=== PATIENT | female | born 1930 ===

== ENCOUNTER 2017-05-10 20:21 | Inpatient (IN) | payer MEDICARE, OTHER ==
[2017-05-10 20:49] VITALS: BMI 28.0
[2017-05-10 21:25] LABS: BASO # 0.02 K/mm3 (0.0-2.0); BASO % 0.3 % (0.0-3.0); EOS # 0.2 (0.0-0.7); EOS % 2.1 % (1.5-5.0); GRAN # 5.08 (1.4-6.5); GRAN % 67.4 % (50.0-68.0); HEMOGLOBIN 11.1 g/dL (12.0-16.0); LYMPH # 1.8 (1.2-3.4); LYMPH % 24.2 % (22.0-35.0); MEAN CELL VOLUME 86.8 fl (80.0-105.0); MEAN CORPUSCULAR HEMOGLOBIN 28.8 pg (25.0-35.0); MEAN CORPUSCULAR HGB CONC 33.2 g/dl (31.0-37.0); MEAN PLATELET VOLUME 10.4 fl (7.0-11.0); MONO # 0.5 (0.1-0.6); RBC 3.85 10^6/uL (3.5-6.1); WHITE BLOOD COUNT 7.5 10^3/ul (4.5-11.0)
[2017-05-10 21:34] LABS: INR 0.97 (0.93-1.08); PROTHROMBIN TIME 11.1 SECONDS (9.4-12.5)
[2017-05-10 21:35] LABS: PARTIAL THROMBOPLASTIN TIME 27.4 Seconds (25.1-36.5)
[2017-05-10 21:36] LABS: ALB/GLOB RATIO 1.4 (1.1-1.8); ALBUMIN 3.8 g/dL (3.0-4.8); CALCIUM 8.1 mg/dL (8.4-10.5)
[2017-05-10 21:48] LABS: TROPONIN I 0.1 ng/mL
--- NOTE | 2017-05-10 22:25 | ED PDOC ---
Arrival/HPI - General Chief Complaint: Chest Pain Time Seen by Provider: 05/10/17 20:24 Historian: Patient - History of Present Illness Narrative History of Present Illness (Text): 05/10/17 21:00 Hilda Martinez is an 86 year old female, whose past medical history includes pacemaker and atrial fibrillation, who presents to the emergency department complaining of chest pain. Patient states she developed mid-sternal chest pain after drinking GoLytely for her colonscopy tomorrow. Patient was given Aspirin and Nitroglycerin en route to the ER by EMS with improvement. Patient denies any fever, chills, shortness of breath, abdominal pain, nausea, vomiting, diarrhea, urinary symptoms, back pain, neck pain, headache, dizziness, or any other complaints. Time/Duration: Other (today) Symptom Onset: Gradual Symptom Course: Unchanged Activities at Onset: Light Context: Home Past Medical History - Provider Review Nursing Documentation Reviewed: Yes - Reproductive Menopause: Yes - Cardiac Hx Atrial Fibrillation: Yes Hx Pacemaker: Yes - Endocrine/Metabolic Hx Hyperthyroidism: Yes - Hematological/Oncological Hx Anemia: Yes - Musculoskeletal/Rheumatological Hx Arthritis: Yes - Psychiatric Hx Substance Use: No - Surgical History Hx Section: Yes (x3) Other/Comment: pacemaker placement 4/5 years emeterio - Anesthesia Hx Anesthesia: Yes Hx Anesthesia Reactions: No Family/Social History - Physician Review Nursing Documentation Reviewed: Yes Family/Social History: Unknown Family HX Smoking Status: Never Smoked Hx Alcohol Use: No Hx Substance Use: No Allergies/Home Meds Allergies/Adverse Reactions: Allergies zolpidem [From Ambien] Allergy (Verified 05/10/17 20:54) DIZZINESS Home Medications: Home Meds Medication Instructions Recorded Confirmed ALPRAZolam [Xanax] 0.25 mg DAILY 05/10/17 05/10/17 Carbidopa/Levodopa 10 - 100 mg DAILY 05/10/17 05/10/17 [Carbidopa-Levodopa 10-100 Tab] Levocetirizine Dihydrochloride 5 mg DAILY 05/10/17 05/10/17 [Xyzal] Levothyroxine [Synthroid] 75 mcg PO DAILY 05/10/17 05/10/17 Loperamide HCl [Loperamide] 2 mg DAILY 05/10/17 05/10/17 Metoprolol Tartrate [Lopressor] 25 mg DAILY 05/10/17 05/10/17 Ondansetron [Zofran Tab] 4 mg TID 05/10/17 05/10/17 Pantoprazole Sodium [Protonix] 40 mg DAILY 05/10/17 05/10/17 Rivaroxaban [Xarelto] 20 mg PO DAILY 05/10/17 05/10/17 Review of Systems - Physician Review All systems were reviewed & negative as marked: Yes - Review of Systems Constitutional: Normal. absent: Fevers Eyes: Normal ENT: Normal Respiratory: Normal. absent: SOB, Cough Cardiovascular: Chest Pain Gastrointestinal: Normal. absent: Abdominal Pain, Diarrhea, Nausea, Vomiting Genitourinary Female: Normal. absent: Dysuria, Frequency, Hematuria, Urine Output Changes Musculoskeletal: Normal. absent: Back Pain, Neck Pain Skin: Normal. absent: Rash Neurological: Normal. absent: Headache, Dizziness Endocrine: Normal Hemo/Lymphatic: Normal Psychiatric: Normal Physical Exam Vital Signs Reviewed: Yes Vital Signs Temp Pulse Resp BP Pulse Ox 05/10/17 23:37 64 18 129/84 98 05/10/17 23:12 62 18 97 05/10/17 21:02 62 18 129/84 99 05/10/17 20:51 97.6 F 65 18 131/104 H 99 Temperature: Afebrile Blood Pressure: Normal Pulse: Regular Respiratory Rate: Normal Appearance: Positive for: Well-Appearing, Non-Toxic, Comfortable Pain Distress: None Mental Status: Positive for: Alert and Oriented X 3 - Systems Exam Head: Present: Atraumatic, Normocephalic Pupils: Present: PERRL Extroacular Muscles: Present: EOMI Conjunctiva: Present: Normal Mouth: Present: Moist Mucous Membranes Neck: Present: Normal Range of Motion Respiratory/Chest: Present: Clear to Auscultation, Good Air Exchange. No: Respiratory Distress, Accessory Muscle Use Cardiovascular: Present: Normal S1, S2, Irregular Rhythm (Irregular regular). No: Murmurs Abdomen: Present: Normal Bowel Sounds. No: Tenderness, Distention, Peritoneal Signs Back: Present: Normal Inspection Upper Extremity: Present: Normal Inspection. No: Cyanosis, Edema Lower Extremity: Present: Normal Inspection. No: Edema Neurological: Present: GCS=15, CN II-XII Intact, Speech Normal Skin: Present: Warm, Dry, Normal Color. No: Rashes Psychiatric: Present: Alert, Oriented x 3, Normal Insight, Normal Concentration Medical Decision Making ED Course and Treatment: 05/10/17 21:00 Impression: 86 year old female complaining of chest pain today. Plan: -- EKG -- CXR -- Labs, cardiac enzymes -- Urinalysis -- Protonix -- Ativan -- Reassess and disposition Progress Notes: Reviewed EKG, a flutter at 95 bpm. LAD. Inferior infarct. Non-specific ST/T wave changes. 05/10/17 22:00 Reviewed radiology, CXR shows cardiomegaly, no other acute processes. 05/10/17 22:[address] Driscoll, who is aware and agrees with plan. Accepts pt in to his service. Pt will go to Telemetry observation for chest pain. Requests Dr. Paredes on consult. - Lab Interpretations Lab Results: 05/10/17 21:00 05/10/17 21:00 Lab Results 05/10/17 21:00: PT 11.1, INR 0.97, APTT 27.4 05/10/17 21:00: Sodium 130 L, Potassium 4.1, Chloride 96 L, Carbon Dioxide 22, Anion Gap 17, BUN 18, Creatinine 1.2, Est GFR ( Amer) 52, Est GFR (Non- Af Amer) 43, Random Glucose 152 H, Calcium 8.1 L, Magnesium 1.4 L, Total Bilirubin 0.3, AST 49 H, ALT 59 H, Alkaline Phosphatase 79, Lactate Dehydrogenase 661, Total Creatine Kinase 54, Troponin I 0.10, Total Protein 6.6 , Albumin 3.8, Globulin 2.8, Albumin/Globulin Ratio 1.4 05/10/17 21:00: WBC 7.5, RBC 3.85, Hgb 11.1 L, Hct 33.4 L, MCV 86.8, MCH 28.8, MCHC 33.2, RDW 19.0 H, Plt Count 175, MPV 10.4, Gran % 67.4, Lymph % (Auto) 24.2 , [place] % (Auto) 6.0, Eos % (Auto) 2.1, Baso % (Auto) 0.3, Gran # 5.08, Lymph # ( Auto) 1.8, [place] # (Auto) 0.5, Eos # (Auto) 0.2, Baso # (Auto) 0.02 I have reviewed the lab results: Yes - RAD Interpretation Radiology Orders: 05/10/17 21:04 CHEST PORTABLE [RAD] Stat Screed Operator: ED Physician - EKG Interpretation Interpreted by ED Physician: Yes Type: 12 lead EKG - Medication Orders Current Medication Orders: Acetaminophen (Tylenol 325mg Tab) 650 mg PO Q4H PRN PRN Reason: Pain, Mild (1-3) Alprazolam (Xanax) 0.25 mg PO DAILY [facility] PRN Reason: Protocol Stop: 05/18/17 10:01 Last Admin: 05/11/17 10:01 Dose: 0.25 mg Behavioural Document 05/11/17 10:01 (Rec: 05/11/17 10:01 [id number]) Maintenance Maintenance Dose Yes Re-Assess: Reassess Psych Meds Document 05/11/17 11:01 WILLI (Rec: 05/11/17 12:26 [id number] Reassess Psych Med Effective Aspirin (Aspirin Chewable) 81 mg PO DAILY [facility] Last Admin: 05/11/17 10:01 Dose: 81 mg Clopidogrel Bisulfate (Plavix) 75 mg PO ONCE ONE Stop: 05/12/17 10:01 Famotidine (Pepcid) 40 mg PO HS [facility] Levothyroxine Sodium (Synthroid) 75 mcg PO DAILY [facility] Last Admin: 05/11/17 10:01 Dose: 75 mcg Metoprolol Tartrate (Lopressor) 25 mg PO DAILY [facility] Last Admin: 05/11/17 10:01 Dose: 25 mg Nitroglycerin (Nitro-Bid 2% Oint) 1 ea TOP Q6 [facility] Last Admin: 05/11/17 17:11 Dose: Not Given Non-Admin Reason: Patient Refused Discontinued Medications Al Hydrox/Mg Hydrox/Simethicone (Maalox Plus 30 Ml) 30 ml PO ONCE ONE Stop: 05/11/17 14:30 Last Admin: 05/11/17 14:36 Dose: 30 ml Clopidogrel Bisulfate (Plavix) 300 mg PO ONCE ONE Stop: 05/11/17 10:01 Last Admin: 05/11/17 10:01 Dose: 300 mg Sodium Chloride (Sodium Chloride 0.9%) 1,000 mls @ 100 mls/hr IV .Q10H STA Stop: 05/11/17 08:37 Last Admin: 05/11/17 00:07 Dose: 100 mls/hr eMAR Start Stop Document 05/11/17 00:07 AP (Rec: 05/11/17 00:07 AP [facility]-[id number]) Intravenous Solution Start Date 05/11/17 Start Time 00:07 Lorazepam (Ativan) 0.5 mg PO ONCE ONE PRN Reason: Protocol Stop: 05/10/17 21:05 Last Admin: 05/10/17 21:27 Dose: 0.5 mg Re-Assess: Reassess Psych Meds Document 05/11/17 00:07 AP (Rec: 05/11/17 00:07 AP [facility]-[id number]) Reassess Psych Med Effective Pantoprazole Sodium (Protonix Inj) 40 mg IVP ONCE STA Stop: 05/10/17 21:30 Last Admin: 05/10/17 21:55 Dose: 40 mg IVP Administration Document 05/10/17 21:55 SS (Rec: 05/10/17 21:55 SS [id number]) Charges for Administration # of IVP Administrations 1 - Scribe Statement The provider has reviewed the documentation as recorded by the Marnie Clement Provider Scribe Attestation: All medical record entries made by the Scribe were at my direction and personally dictated by me. I have reviewed the chart and agree that the record accurately reflects my personal performance of the history, physical exam, medical decision making, and the department course for this patient. I have also personally directed, reviewed, and agree with the discharge instructions and disposition. Disposition/Present on Arrival - Present on Arrival Any Indicators Present on Arrival: No History of DVT/PE: No History of Uncontrolled Diabetes: No Urinary Catheter: No History of Decub. Ulcer: No History Surgical Site Infection Following: None - Disposition Have Diagnosis and Disposition been Completed?: Yes Diagnosis: Chest pain Disposition: HOSPITALIZED Disposition Time: 22:15 Condition: FAIR
[2017-05-10] MEDS ORDERED: Sodium Chloride 0.9% 1,000 ML IV STA (22:38)
[2017-05-11 07:43] LABS: BASO # 0.01 K/mm3 (0.0-2.0); BASO % 0.1 % (0.0-3.0); EOS % 0.2 % (1.5-5.0); GRAN # 6.58 (1.4-6.5); GRAN % 75.6 % (50.0-68.0); HEMOGLOBIN 10.3 g/dL (12.0-16.0); LYMPH # 1.4 (1.2-3.4); LYMPH % 16.6 % (22.0-35.0); MEAN CELL VOLUME 86.4 fl (80.0-105.0); MEAN CORPUSCULAR HEMOGLOBIN 28.6 pg (25.0-35.0); MEAN CORPUSCULAR HGB CONC 33.1 g/dl (31.0-37.0); MONO # 0.7 (0.1-0.6); MONO % 7.5 % (1.0-6.0); RBC 3.6 10^6/uL (3.5-6.1); RED CELL DISTRIBUTION WIDTH 18.9 % (11.5-14.5); WHITE BLOOD COUNT 8.7 10^3/ul (4.5-11.0)
[2017-05-11 08:08] LABS: ALB/GLOB RATIO 1.3 (1.1-1.8); ALBUMIN 3.3 g/dL (3.0-4.8); ALT/SGPT 58 U/L (7-56); AST/SGOT 44 U/L (14-36); BLOOD UREA NITROGEN 17 mg/dL (7-21); CALCIUM 7.4 mg/dL (8.4-10.5); GFR AFRICAN-AMERICAN > 60; GFR NON-AFRICAN AMERICAN 53
[2017-05-11 08:23] LABS: TROPONIN I 1.67 ng/mL
--- NOTE | 2017-05-11 09:22 | RAD ---
HISTORY: cp COMPARISON: No prior. FINDINGS: LUNGS: No active pulmonary disease. PLEURA: No significant pleural effusion identified, no pneumothorax apparent. CARDIOVASCULAR: Normal. OSSEOUS STRUCTURES: No significant abnormalities. VISUALIZED UPPER ABDOMEN: Normal. OTHER FINDINGS: Dual lead pacemaker IMPRESSION: No active disease.
[2017-05-11] MEDS ORDERED: Pantoprazole 40 mg EC Tab PO SCH (10:00)
[2017-05-11] MEDS: Levothyroxine 75 MCG TAB PO SCH (10:01)
[2017-05-11] MEDS: Nitroglycerin 2% Ointment Foilpak UD TOP SCH ×3 (13:25→23:00)
[2017-05-11] MEDS ORDERED: Alum-Mag Hydrox-Simethicone Susp (30 mL) PO ONE (14:29)
--- NOTE | 2017-05-11 14:36 | CON ---
DATE: 05/11/2017 HISTORY OF PRESENT ILLNESS: The patient is an 86-year-old woman who presents with angina. PAST MEDICAL HISTORY: Notable for history of chronic atrial fibrillation, which she has been treated with beta-blockers and Xarelto. In addition, the patient suffers from hypothyroidism, treated with levothyroxine. The patient denies diabetes mellitus. No hypertension. SOCIAL HISTORY: The patient does not smoke. REVIEW OF SYSTEMS: A 14-point review of systems was reviewed in detail. No previous myocardial infarction in the past. No history of coronary artery disease. No dyspnea noted. Negative edema. No upper GI bleeding and no history of bleeding issues. PHYSICAL EXAMINATION: VITAL SIGNS: Blood pressure 121/80, heart rate is normal sinus rhythm today in the 60s. NECK: Negative JVD. LUNGS: Without rales. HEART: With S1, S2. EXTREMITIES: Without edema. EKG shows atrial flutter with nonspecific ST-T changes. LABORATORY DATA: Troponins of 0.10, BUN and creatinine are unremarkable. The hemoglobin is 10. IMPRESSION: 1. Non-ST elevation myocardial infarction. 2. Unstable angina. 3. History of paroxysmal atrial fibrillation/flutter. 4. Hypothyroidism. 5. High probability for coronary artery disease. RECOMMENDATIONS: Given these findings, the patient will need cardiac catheterization given her ongoing angina including angina at rest. We will stop her Xarelto today. We will arrange for cardiac catheterization in the morning. I have discussed this with the patient in detail. The patient is agreeable. Cesar Paredes MD
--- NOTE | 2017-05-11 17:02 | HP ---
HISTORY OF PRESENT ILLNESS: She came in last night with chest pain after taking GoLYTELY for colonoscopy and she developed chest pain, came to the emergency room, she had an indeterminate troponin and this morning's is pending. Dr. Paredes was to do a catheterization her tomorrow. We have stopped the Xarelto. She is an 86-year-old female. PAST MEDICAL HISTORY: Includes pacemaker, atrial fibrillation, chest pain midsternal, drinking GoLYTELY. She was given aspirin, nitroglycerin by EMS. This morning when I see her, she has no complaints of anything. No chest pain, shortness of breath or abdominal pain. She is in menopause. She has a pacemaker, atrial fibrillation, hypothyroidism, anemia. She has arthritis. She has history of section x3, pacemaker placement. FAMILY HISTORY: She has unknown family history. SOCIAL HISTORY: Never smoked. No alcohol. No drugs. ALLERGIES: SHE IS ALLERGIC TO ZOLPIDEM. She gets dizzy. She has got Parkinson's disease. MEDICATIONS: She is on Sinemet, Synthroid, hypothyroidism, loperamide for diarrhea, Xanax for anxiety, Xyzal for allergies, Lopressor for hypertension, Zofran for nauseousness, Protonix for abdominal discomfort, Xarelto for her AFib. REVIEW OF SYSTEMS: She came in with chest pain, it has now gone. No vision changes or hearing changes. No sore throat. No shortness of breath or cough. She had chest pain, palpitations with which she came in, but none now. No nausea, vomiting, constipation or diarrhea now. No rashes appreciated. No headaches or dizziness at this time. No nervousness, anxiety. No sweating. PHYSICAL EXAMINATION: VITAL SIGNS: She has a 97.6 temperature, 65 pulse ,18 respiratory rate, 131/104 when she came, it is down to 129/84 now with 98% O2 sat on room air. GENERAL: Well appearing, comfortable. Alert and oriented x3. HEENT: Head is atraumatic, normocephalic. Extraocular muscles are intact. Pupils are equal and reactive to light and accommodation. Throat is moist. NECK: Supple. HEART: Irregular rate. Normal S1, S2. LUNGS: Decreased breath sounds, but clear to auscultation bilaterally. ABDOMEN: Soft, nontender. Positive bowel sounds. EXTREMITIES: No edema. NEUROLOGIC: GCS is 15. Cranial nerves II-XII grossly intact. Normal speech. She talks [place]. Her daughter there with me translating. SKIN: Warm and dry. No apparent rashes or ulcers. THYROID: Midline. No palpable appreciable lymphadenopathy. LABORATORY DATA: She had multiple tests done. She has a 132 sodium, potassium 4.4, BUN 17, creatinine 1, GFR is greater than 53, sugar is 99, calcium 7.4, magnesium is 1.4, total bili is 0.5, AST is 44, ALT is 58, alkaline phosphatase 58. First troponin 0.1, indeterminate waiting for this morning's, total protein is 5.8. INR is 0.97. White count 8.7, hemoglobin 10.3, hematocrit 31.1, platelets of 164. She had a chest x-ray, which is pending. ASSESSMENT AND PLAN: I discussed with Dr. Cesar Paredes, the technology analyst. We are going to prepare for cardiac catheterization tomorrow and this is a history and physical on Hilda Martinez who came in with chest pain, hypothyroid, Parkinson's with a borderline troponin. Gold Driscoll DO
--- NOTE | 2017-05-11 18:50 | CARD ---
APPROVED REPORT EXAM: Two-dimensional and M-mode echocardiogram with Doppler and color Doppler. INDICATION NSTEMI 2D DIMENSIONS RVDd2.9 (2.9-3.5cm)Left Atrium (2D)4.6 (1.6-4.0cm) IVSd0.7 (0.7-1.1cm)LVDd5.1 (3.9-5.9cm) PWd1.0 (0.7-1.1cm)LVDs4.3 (2.5-4.0cm) FS (%) 15.5 %LVEF (%)32.3 (>50%) M-Mode DIMENSIONS Aortic Root3.20 (2.2-3.7cm)Aortic Cusp Exc.1.60 (1.5-2.0cm) Aortic Valve AoV Peak Rfhwrwxo089.0cm/Leodan Peak GR.6mmHgAI P 1/2 [id number] Mitral Valve MV E Jdatocsc26.6cm/sMV A Nlanmmze52.1cm/sE/A ratio1.4 TDI Lateral E' Peak V5.85cm/sMedial E' Peak V4.58cm/sE/Lateral E'10.9 E/Medial E'13.9 Pulmonary Valve PV Peak Gzvburct50.6cm/sPV Peak Grad.1mmHg Tricuspid Valve TR Peak [id number]/sRAP JASMZWTH38mgNcNE Peak Gr.67mmHg [id number] LEFT VENTRICLE The left ventricle is normal size. There is normal left ventricular wall thickness. The systolic function is severely impaired. Akinetic [place] RIGHT VENTRICLE The right ventricle is normal size. There is normal right ventricular wall thickness. The right ventricular systolic function is normal. There is a pacemaker lead in the right ventricle. ATRIA The left atrium is mildly dilated. The right atrium is mildly dilated. AORTIC VALVE The aortic valve is mildly thickened. There is mild aortic regurgitation. MITRAL VALVE The mitral valve is mildly thickened. Mitral regurgitation is mild to moderate. TRICUSPID VALVE There is moderate tricuspid regurgitation. There is severe pulmonary hypertension. GREAT VESSELS The aortic root is normal in size. The IVC is dilated. <Conclusion> The left ventricle is normal size. There is normal left ventricular wall thickness. The systolic function is severely impaired. Akinetic [place] There is mild aortic regurgitation. Mitral regurgitation is mild to moderate. There is moderate tricuspid regurgitation. There is severe pulmonary hypertension.
--- NOTE | 2017-05-11 19:38 | CARD ---
APPROVED REPORT EKG Measurement Heart [id number] <Conclusion> Atrial flutter with variable AV block Left axis deviation Inferior infarct, age undetermined Anterior infarct, age undetermined Abnormal ECG
--- NOTE | 2017-05-11 21:42 | CP.PCM.PN ---
Subjective - Date & Time of Evaluation Date of Evaluation: 05/11/17 Time of Evaluation: 21:39 - Subjective Subjective: S:Patient seen at bedside. She requests xanax for sleep. States that she takes xanax at home sometimes. Has no other complaints. No sob, no chest pain. Medical record was reviewed. O:Awake, alert, Japanese speaking. LUNGS: Normal breathing pattern. A:Adjustment insomnia. P:Xanax 0.25 mg PO x 1. Objective - Vital Signs/Intake and Output Vital Signs (last 24 hours): Temp Pulse Resp BP Pulse Ox 98.1 F 69 18 100/66 95 05/11/17 17:35 05/11/17 18:00 05/11/17 17:35 05/11/17 17:35 05/11/17 17:35 Intake and Output: 05/11/17 05/12/17 18:59 06:59 Intake Total 480 Output Total 200 Balance 280 - Medications Medications: Current Medications Acetaminophen (Tylenol 325mg Tab) 650 mg PO Q4H PRN PRN Reason: Pain, Mild (1-3) Alprazolam (Xanax) 0.25 mg PO DAILY [facility] PRN Reason: Protocol Stop: 05/18/17 10:01 Last Admin: 05/11/17 10:01 Dose: 0.25 mg Aspirin (Aspirin Chewable) 81 mg PO DAILY [facility] Last Admin: 05/11/17 10:01 Dose: 81 mg Clopidogrel Bisulfate (Plavix) 75 mg PO ONCE ONE Stop: 05/12/17 10:01 Famotidine (Pepcid) 40 mg PO [facility] Levothyroxine Sodium (Synthroid) 75 mcg PO DAILY [facility] Last Admin: 05/11/17 10:01 Dose: 75 mcg Metoprolol Tartrate (Lopressor) 25 mg PO DAILY [facility] Last Admin: 05/11/17 10:01 Dose: 25 mg Nitroglycerin (Nitro-Bid 2% Oint) 1 ea TOP Q6 [facility] Last Admin: 05/11/17 17:11 Dose: Not Given - Labs Labs: 05/11/17 07:30 05/11/17 07:30 PT 11.1 SECONDS (9.4-12.5) 05/10/17 21:00 INR 0.97 (0.93-1.08) 05/10/17 21:00 APTT 27.4 Seconds (25.1-36.5) 05/10/17 21:00
[2017-05-11] MEDS: Magnesium Oxide 400 mg Tab UD PO SCH ×2 (22:02→22:58)
[2017-05-12] MEDS: Nitroglycerin 2% Ointment Foilpak UD TOP SCH (05:53)
[2017-05-12 06:26] LABS: MEAN CELL VOLUME 85.8 fl (80.0-105.0); MEAN CORPUSCULAR HEMOGLOBIN 28.9 pg (25.0-35.0); MEAN CORPUSCULAR HGB CONC 33.7 g/dl (31.0-37.0); MEAN PLATELET VOLUME 10.3 fl (7.0-11.0); RBC 3.8 10^6/uL (3.5-6.1); RED CELL DISTRIBUTION WIDTH 19.2 % (11.5-14.5); WHITE BLOOD COUNT 7.9 10^3/ul (4.5-11.0)
[2017-05-12 06:37] LABS: BLOOD UREA NITROGEN 15 mg/dL (7-21); GFR AFRICAN-AMERICAN > 60; GFR NON-AFRICAN AMERICAN 53
[2017-05-12 06:38] LABS: ALB/GLOB RATIO 1.2 (1.1-1.8); ALBUMIN 3.3 g/dL (3.0-4.8); ALT/SGPT 53 U/L (7-56); AST/SGOT 39 U/L (14-36); CALCIUM 8.2 mg/dL (8.4-10.5)
[2017-05-12] MEDS ORDERED: Lidocaine 2% Inj (20ml) ONE (09:17)
[2017-05-12] MEDS ORDERED: Iodixanol 320 MG/ML 200 ML BOTTLE IV ONE (09:18)
[2017-05-12] MEDS ORDERED: Iohexol 350mgl/ml 50 ML ONE (09:18)
[2017-05-12] MEDS ORDERED: Midazolam 2 MG/2 ML VIAL ONE ×2 (09:35→09:40)
[2017-05-12] MEDS ORDERED: Iodixanol 320 MG/ML 100 ML BOTTLE IV ONE (09:41)
[2017-05-12] MEDS ORDERED: Phenylephrine 10 mg/ml Inj ONE (09:41)
[2017-05-12] MEDS ORDERED: Sodium Chloride 0.9% 1,000 ML IV SCH (10:30)
[2017-05-12 11:27] VITALS: RESP 18; O2SAT 97
--- NOTE | 2017-05-12 11:29 | PN ---
DATE: 05/11/2017 SUBJECTIVE: I saw her this morning with her daughter getting ready for catheterization with Dr. Cesar Paredes. She has been off the medications, I believe the Xarelto and now, she is going for cardiac cath. She is comfortable, a little bit nervous. She slept fairly well. No chest pain or shortness of breath. No abdominal pain at this time. PHYSICAL EXAMINATION VITAL SIGNS: She has 98.2 temperature, 78 pulse, 108/70 blood pressure, 20 respiratory rate, 97% O2 sat on room air. HEENT: Head is atraumatic, normocephalic. Throat is moist. NECK: Supple. HEART: Regular rate. LUNGS: Clear to auscultation with decreased breath sounds. ABDOMEN: Soft, nontender. Positive bowel sounds. EXTREMITIES: No edema. LABORATORY DATA: She has a 129 sodium, potassium is 4.1, BUN is 15, creatinine 1, GFR is 53, sugar is 101, calcium is 8.2, total bilirubin is 0.6, AST is 39, ALT is 53, alkaline phosphatase is 65. Her troponin 0.1 to 0.167, it is very possible that she is having an N-STEMI and albumin is 6.1. INR is 0.97. She has a 7.9 white count, 11 hemoglobin, 32.6 hematocrit with a 173 platelets. She will be getting CAT scan with Dr. Paredes. If stents in place, she probably have to stay till tomorrow. If she has no stents, we might have a shot at discharging her later on this afternoon and it is possible she is going to an N-STEMI now that the troponins have bumped. We will check her labs tomorrow. She had chest pain, hypothyroid. She has a positive troponin. Gold Driscoll DO BENJIE
[2017-05-12] MEDS: Levothyroxine 75 MCG TAB PO SCH (11:53)
[2017-05-12 11:59] VITALS: TEMP 97.6
--- NOTE | 2017-05-12 12:40 | CARDCATH ---
PROCEDURE DATE: 05/12/2017 HISTORY: The patient is an 86-year-old woman who presents with symptoms consistent with unstable angina. Her troponins were noted to be elevated up to 1.67. Echocardiogram reveals compromised left ventricle. Because of this, cardiac catheterization was recommended. PROCEDURE: Left heart catheterization with coronary arteriography and left ventriculogram. The right femoral artery was cannulated with a 6-[place] sheath. There were no complications. I performed moderate sedation which included the presence of an independent trained observer that assisted in monitoring the patient's level of consciousness and physiologic status. After administration of Versed and fentanyl, my intra-service time was 15 minutes. The findings on catheterization revealed a left ventricle that revealed anteroapical akinesis. The anterobasal segment and inferobasal segment and inferior wall moves well. Estimated ejection fraction is approximately 40%. Her coronary anatomy revealed a right dominant circulation. The RCA revealed diffuse intimal irregularities without critical lesions. The left main artery was unremarkable. The LAD revealed that intimal irregularities without critical lesions. The diagonal vessel was a small to moderate size vessel. There is a 50%-60% stenoses in the proximal portion of the diagonal vessel. The circumflex artery and obtuse marginal branches were free of significant disease. Angio-Seal was used to close the femoral artery site. The patient tolerated the procedure well. In summary, the procedure revealed a left ventricle with anteroapical akinesis with an EF of approximately 40%. The appearance of the left ventricle is consistent although not diagnostic of Takotsubo's cardiomyopathy. Her coronary anatomy revealed diffuse atherosclerosis with a borderline critical lesion in the diagonal vessel. Given these findings, the patient's treatment will be medical therapy. She can be replaced back on her anticoagulation for atrial fibrillation. A cardiac risk reduction program needs to be initiated. Aspirin, metoprolol as well as statin therapy should be given. Cesar Paredes MD
[2017-05-12 16:32] VITALS: BP 124/56; PULSE 62
--- NOTE | 2017-05-13 08:07 | DS ---
SUMMARY: She had a cardiac cath by Dr. Paredes. He said she did not get any stents and going to be discharged home today at 4 o'clock and discussed with daughter, that will be taking her home at 4 o'clock. She is going to go home on aspirin, Lipitor, Lopressor, Synthroid, Xanax and Xarelto. Prescriptions were written. She is also going to go back on her carbidopa/levodopa, Protonix, and she should follow up with her primary care doctor. She was here for chest pain. Thank you very much. Gold Driscoll DO
--- NOTE | 2017-05-17 07:24 | PQF AMI ---
This form is a permanent part of the medical record DR. MIGUEL, Please verify if the NSTEMI was ruled in or out at discharged. Final PN documents "possible she is going to NSTEMI now that her troponins have bumped." . Clarification of your documentation is requested to better reflect the severity of illness and intensity of treatment of your patient. Indicators present [] Diagnosis of TN without specification of time frame (within 28 days of admission of greater than 28 days prior to admission) [] Diagnosis of subsequent TN (time frame of previous TN within 28 days of admission or greater than 28 days of admission) [] Diagnosis of TN w/o specified site [] EKG positive for changes (i.e.; ST elevation, non-ST elevation, Q-wave changes, etc.) [] Elevated Troponins [] Elevated Cardiac Enzymes [] Cardiac consult documentation of [] Chest pain/ACS/Unstable Angina as per cardilogy [] Echo findings of [] Other: [] Location in the medical record that reflects the above clinical findings:[] Other Treatment Provided:[] PHYSICIAN'S RESPONSE Based on your medical judgment of the clinical indicators outlined above, are you treating this patient for a known or suspected: [ ] NSTEMI [ ] STEMI Site: [ ] [ ] ACS/Unstable Angina [ ] Angina :[ ] [ ] Other, please indicate [ ]___ If Unable to Determine, please check the box, sign and date Present On Admission (POA) Indicator: [ ] Present at the time of admission [ ] Not present at the time of admission [ ] Clinically Undetermined * If you have any questions please call:[ ] * Thank you, [X ] FLYNN grave cleaner In responding to this query, please exercise your independent professional judgment. The fact that a question is asked does not imply that any particular answer is desired or expected. Thank you for your clarification on this documentation. BENJIE
== END 2017-05-12 18:52 | disposition home or self-care (01) | DRG 287 ==
LOC: ED 20:21 → ERH 22:14 → 2RNO 23:37 → OBSVTOIN 05-11 15:54
PROVIDERS: ADMIT Family Medicine; ATTEND Family Medicine
PROC: 4A023N7 Measurement of Cardiac Sampling and Pressure, Left Heart, Percutaneous Approach (ICD-10-PCS; principal; 2017-05-12)
PROC: B211YZZ Fluoroscopy of Multiple Coronary Arteries using Other Contrast (ICD-10-PCS; 2017-05-12)
PROC: B215YZZ Fluoroscopy of Left Heart using Other Contrast (ICD-10-PCS; 2017-05-12)
DX: I25.110 Atherosclerotic heart disease of native coronary artery with unstable angina pectoris (principal); G20 Parkinson's disease; I48.92 Unspecified atrial flutter; I48.0 Paroxysmal atrial fibrillation; I48.2 Chronic atrial fibrillation; F51.02 Adjustment insomnia; E03.9 Hypothyroidism, unspecified; Z95.0 Presence of cardiac pacemaker; Z79.01 Long term (current) use of anticoagulants